=== PATIENT | female | born 1990 ===

== ENCOUNTER → 2017-12-23 | Outpatient (REF) | payer BC, OTHER ==
[2017-12-23 16:59] LABS: FOLATE 16.7 NG/ML
[2017-12-28 14:27] LABS: VITAMIN E(ALPHA TOCOPHEROL) 8.9 mg/L (5.9-19.4); VITAMIN E(GAMMA TOCOPHEROL) 1.2 mg/L (0.7-4.9)
[2017-12-29 08:06] LABS: VITAMIN B6,PYRIDOXAL PHOSPHATE 15.8 ug/L (2.0-32.8)
== END ==
LOC: M LABNEURO 13:47
DX: R41.3 Other amnesia (principal)
CPT/HCPCS: 82746

== ENCOUNTER → 2018-01-20 | Outpatient (REF) | payer OTHER ==
[2018-01-20 18:49] LABS: CHLAMYDIA DNA AMPLIFICATION NEGATIVE (NEGATIVE); GC DNA AMPLIFICATION NEGATIVE (NEGATIVE)
== END ==
LOC: M SFHCWAGY 15:49
DX: Z11.3 Encounter for screening for infections with a predominantly sexual mode of transmission (principal)
CPT/HCPCS: 87591